=== PATIENT | female | born 1985 | race Caucasian/White ===

== ENCOUNTER 2017-04-15 20:34 | Emergency (ER) | payer SELFPAY ==
--- NOTE | 2017-04-15 20:43 | ED Physician Documentation ---
General Adult - HISTORIAN Historian: patient - HPI Stated Complaint: chest pain Chief Complaint: General Adult Onset: hours Timing: still present Severity: moderate Further Comments: yes (Pt is a 32 yo female with c/o chest pain. Pt has not had n/v, sob, diaphoresis. Pain radiates to back. No significatn PMHx. Pain is 6/10 in severity.) - ROS CONST: no problems EYES/ENT: none CVS/RESP: chest pain. denies: shortness of breath GI/: none MS/SKIN/LYMPH: none - PAST HX Past History: none Allergies/Adverse Reactions: Allergies Allergy/AdvReac Type Severity Reaction Status Date / Time morphine Allergy Intermediate Generalized Verified 04/15/17 21:14 Swelling - SOCIAL HX Smoking History: cigarettes Alcohol Use: occasionally - FAMILY HX Family History: No - VITAL SIGNS Vital Signs: Vital Signs Temp Pulse Resp BP Pulse Ox 131/79 10/27/13 22:08 - REVIEWED ASSESSMENTS Nursing Assessment Reviewed: Yes Vitals Reviewed: Yes Progress - Progress Progress: GI cocktail no change Toradol 30 mg IV improved pain 6 --> 2 continue NSAIDS - EKG/XRAY/CT XRAY: chest (neg) General Adult Physical Exam - PHYSICAL EXAM GENERAL APPEARANCE: anxious EENT: pharynx normal NECK: normal inspection, supple RESPIRATORY: no resp distress, breath sounds normal, other (reproducible chest tenderness to palpation) CVS: reg rate & rhythm, heart sounds normal ABDOMEN: soft, no organomegaly, normal bowel sounds BACK: normal inspection, no CVA tenderness SKIN: warm/dry, normal color EXTREMITIES: non-tender, normal range of motion, no evidence of injury NEURO: oriented X3, motor nml, sensation nml Discharge Clincal Impression: Non-cardiac chest pain, Costochondral chest pain Referrals: Sharmaine Hester MD [Primary Care Provider] - Condition: Stable Disposition: 01 HOME, SELF-CARE Decision to Admit: NO Decision Time: 22:09
[2017-04-15] MEDS: MAG HYDROX/AL HYDROX/SIMETH 30 ML, Lidocaine 2%Visc 15ml 20 MG, PHENobarb/HYOSCY/ATROPI... PO ONE ×3 (20:55)
[2017-04-15 20:59] LABS: BASOPHILS % 0.5 (0.0-1.5); EOSINOPHILS % 5.6 % (0.0-6.8); MEAN CORPUSCULAR HEMOGLOBIN 30.3 pg (28.0-34.0); MEAN CORPUSCULAR VOLUME 90.6 fl (80.0-100.0); MONOCYTES % 3.9 % (0.0-11.0); NEUTROPHILS # 3.9 # k/uL (1.4-7.7)
[2017-04-15 21:12] LABS: eGFR (African) > 60; eGFR (Non-African) > 60
[2017-04-15] MEDS: MAGNESIUM HYDROXIDE/AL HYDROX 30 ML UDC PO ONE (21:47)
[2017-04-15] MEDS: Lidocaine 2%Visc 15ml 20 MG/ML UDC ONE (21:47)
--- NOTE | 2017-04-15 21:48 | Diagnostic Imaging Report ---
JOSELITO ARORA [facility] [address] [address] [facility] [address] Report Submission Date: Apr 15, 2017 9:47:03 PM OFFSET LITHOGRAPHIC PRESS OPERATOR Patient Study Name: ATTILA ZABALA Date: Apr 15, 2017 9:24:39 PM OFFSET LITHOGRAPHIC PRESS OPERATOR Modality Type: DX Gender: F Description: CHEST : 85 Institution: [facility] Physician: JOSELITO ARORA Chest 2 views History: 1 day chest pain Findings: The lungs are clear. There is no pleural effusion. Heart size and pulmonary vascularity are normal. Osseous structures are unremarkable. Impression: Normal chest. Electronically signed on Apr 15, 2017 9:47:03 PM OFFSET LITHOGRAPHIC PRESS OPERATOR by: Carlos RENAE
[2017-04-15] MEDS: KETOROLAC TROMETHAMINE 30 MG/1ML VIAL IVP ONE (21:53)
[2017-04-15 22:33] VITALS: BP 114/55
== END 2017-04-15 22:25 | disposition home or self-care (01) ==
LOC: ED 20:34
DX: R07.89 Other chest pain (principal); F17.210 Nicotine dependence, cigarettes, uncomplicated
CPT/HCPCS: 71046; 80053; 82550; 83690; 84484; 84703; 85025; 93005; A9270; J1885; 96374; 99282; 99283; S1016

== ENCOUNTER 2018-04-06 16:25 | Emergency (ER) | payer SELFPAY ==
--- NOTE | 2018-04-06 16:37 | ED Physician Documentation ---
Female Urogenital Problems - HISTORIAN Historian: patient - HPI Stated Complaint: difficult with urination Chief Complaint: Female Urogenital Problems Additional Information: Patient presents to ED with a 12 hour history of difficulty with urination and dysuria. Patient denies fever. Onset: hours (12) Severity: mild Further Comments: no - Associated Symptoms Urinary Symptoms: frequent urination, discomfort w/ urination, urgency w/ urination - ROS CONST: denies: fever GI/: denies: nausea, vomiting CVS/RESP: denies: chest pain, shortness of breath EYES/ENT: none NEURO/PSYCH: denies: headache MS/SKIN/LYMPH: none - PAST HX Past History: none Other History: none Surgeries/Procedures: none Allergies/Adverse Reactions: Allergies Allergy/AdvReac Type Severity Reaction Status Date / Time morphine Allergy Intermediate Generalized Verified 04/06/18 16:44 Swelling Home Medications: Ambulatory Orders Medication Instructions Recorded Ciprofloxacin HCl [Cipro] 500 mg PO BID 3 Days #6 tablet 04/06/18 - SOCIAL HX Smoking History: non-smoker Alcohol Use: none Drug Use: none - FAMILY HX Family History: none - VITAL SIGNS Vital Signs: Vital Signs Temp Pulse Resp BP Pulse Ox 114/55 04/15/17 22:25 - REVIEWED ASSESSMENTS Nursing Assessment Reviewed: Yes Vitals Reviewed: Yes ED Results Lab/Radiology - Orders Orders: ED Orders Category Date Time Status UA W/MICRO IF INDICATED Routine Lab 04/06/18 16:33 Ordered Female Urogenital Problems - EXAM General Appearance: no acute distress, alert EENT: NIKKY Neck: nml inspection Respiratory: no resp. distress, breath sounds nml, respiratory distress CVS: reg rate & rhythm, heart sounds normal Abdomen: soft, non-tender, no distention, nml bowel sounds Back: No: CVA tenderness Skin: warm,dry Extremities: non-tender Neuro: oriented X3, motor nml Discharge Clincal Impression: Acute cystitis Qualifiers: Hematuria presence: without hematuria Qualified Code(s): N30.00 - Acute cystitis without hematuria Prescriptions: Ciprofloxacin HCl [Cipro] 500 mg PO BID 3 Days #6 tablet Referrals: Sharmaine Hester MD [Primary Care Provider] - 2 Days Additional Instructions: 1. Start Cipro tomorrow morning 2. Drink plenty of fluid to maintain proper hydration. Avoid Alcohol and Caffeine 3. Follow up with PCP within 1 week 4. Return to ER for new or worsening symptoms. Condition: Stable Disposition: 01 HOME, SELF-CARE Decision to Admit: NO Date of Decison to Admit: 04/06/18 Decision Time: 17:21
[2018-04-06] MEDS ORDERED: LIDOCAINE HCL 1% PF 50MG/5ML AMP (IM/SUTURE/PAIN CLINIC) IVP ONE (16:41)
[2018-04-06] MEDS ORDERED: cefTRIAXone SODIUM 1 GM INJ IM ONE (16:41)
[2018-04-06 16:44] VITALS: BP 119/86
[2018-04-06 17:30] LABS: APPEARANCE,URINE CLEAR (CLEAR); COLOR,URINE YELLOW (YELLOW)
[2018-04-06 17:31] LABS: OCCULT BLOOD,URINE 1+ (NEGATIVE); PH URINE 5.5 (5.0 - 8.0); UROBILINOGEN URINE 0.2 Eu (0.2-1.0)
== END 2018-04-06 17:10 | disposition home or self-care (01) ==
LOC: ED 16:25
DX: N30.00 Acute cystitis without hematuria (principal)
CPT/HCPCS: 81002; 87086; 96372; 99283; 99284; J0696

== ENCOUNTER 2018-11-04 17:49 | Emergency (ER) | payer SELFPAY ==
--- NOTE | 2018-11-04 18:00 | ED Physician Documentation ---
General Adult - HISTORIAN Historian: patient - HPI Stated Complaint: nausea and vomiting Chief Complaint: Nausea,Vomiting,Diarrhea Onset: days ago (1) Timing: still present Severity: moderate (6/10) Further Comments: yes (She states two weeks ago she started to have on and off chest pain. No cough. She did have congestion. No fever. She states this evening she had an episode where she got sweaty and nauseated and she did not take any oTC meds. THe pain is continuing mildly in the mid chest and the nausea is slighty less. No injury. NO shortness of air.) - ROS CONST: no problems CVS/RESP: chest pain, cough. denies: shortness of breath GI/: vomiting, nausea. denies: abdominal pain, problems urinating MS/SKIN/LYMPH: none - PAST HX Past History: none Immunizations: UTD Allergies/Adverse Reactions: Allergies Allergy/AdvReac Type Severity Reaction Status Date / Time morphine Allergy Intermediate Generalized Verified 11/04/18 19:13 Swelling Home Medications: Ambulatory Orders Medication Instructions Recorded NK 11/04/18 - SOCIAL HX Smoking History: non-smoker Alcohol Use: none Drug Use: none - FAMILY HX Family History: No - VITAL SIGNS Vital Signs: Vital Signs Temp Pulse Resp BP Pulse Ox 120/78 06/20/18 15:42 - REVIEWED ASSESSMENTS Nursing Assessment Reviewed: Yes Vitals Reviewed: Yes Progress - Progress Progress: 1915: states nausea is improved DG 1929: discussed current results - states pain is the same although no nausea. DG 2002: States pain has not changed DG 2028: Discussed findings. She states it is not "pain" but a pressure and she has never had reflux she does not believe it is reflux - discussed that she has had the chest pain for almost two weeks trop would most generally be elevated after that time. Offered her GI cocktail or stay for repeat trop and she states she is ready to go home. DG ED Results Lab/Radiology - Radiology Radiology Impressions: Chest, 1 view History: CHEST PRESSURE FOR ABOUT A WEEK Findings: The heart size is normal. The lungs are clear. There is no pleural effusion or pneumothorax identified. The osseous structures are normal. Impression: 1. No acute pulmonary disease. Electronically signed on Nov 04, 2018 7:05:11 PM CDT by: Ran Mata General Adult Physical Exam - PHYSICAL EXAM GENERAL APPEARANCE: no distress EENT: eye inspection normal, no signs of dehydration NECK: normal inspection RESPIRATORY: no resp distress, breath sounds normal, other (Chest is tender to touch mid to left with palpation ) CVS: reg rate & rhythm, heart sounds normal ABDOMEN: soft, no distension, tenderness (epigastric area) SKIN: warm/dry, normal color EXTREMITIES: non-tender, normal range of motion, no evidence of injury, no edema NEURO: oriented X3 Discharge Clincal Impression: Non-cardiac chest pain Referrals: Sharmaine Hester MD [Primary Care Provider] - 2 Days Comments: 1. Tramadol 50 mg take 1 by mouth every 8 hours as needed for pain 2. Omeprazole 20 mg take 1 by mouth daily 3. Follow up with PCP in 2-4 days 4. Return to ER for any increased results Condition: Stable Disposition: 01 HOME, SELF-CARE Decision to Admit: NO Date of Decison to Admit: 11/04/18 Decision Time: 20:32
[2018-11-04 18:24] LABS: BASOPHILS % 0.3 % (0.0-1.5); NEUTROPHILS # 3.8 # k/uL (1.4-7.7)
[2018-11-04 18:25] LABS: APPEARANCE,URINE CLEAR (CLEAR); COLOR,URINE YELLOW (YELLOW); OCCULT BLOOD,URINE NEGATIVE (NEGATIVE); PH URINE 6.5 (5.0 - 8.0); UROBILINOGEN URINE 0.2 Eu (0.2-1.0)
[2018-11-04] MEDS: ASPIRIN 81 MG CHEW TAB PO ONE (18:25)
[2018-11-04] MEDS: 0.9 % SODIUM CHLORIDE 1,000 ML IV ONE (18:25)
[2018-11-04] MEDS: ONDANSETRON HCL/PF 4 MG/ 2ML VIAL IVP ONE (18:27)
[2018-11-04 18:40] LABS: eGFR (Non-African) > 60
[2018-11-04] MEDS: PANTOPRAZOLE SODIUM 40 MG in SODIUM CHLORIDE 0.9 % (FLUSH) 10 ML IVP ONE (19:20)
[2018-11-04] MEDS: KETOROLAC TROMETHAMINE 30 MG/1ML VIAL IV ONE (19:41)
[2018-11-04] MEDS: traMADol HCL 50 MG TABLET PO ONE (20:51)
[2018-11-04 21:07] VITALS: BP 96/63
--- NOTE | 2018-11-06 00:16 | Diagnostic Imaging Report ---
AGUSTIN GARCIA [facility] [address] [address] [facility] [address] [place], [place]. [address] Report Submission Date: Nov 04, 2018 7:05:11 PM CDT Patient Study Name: ATTILA ZABALA Date: Nov 04, 2018 6:21:56 PM CDT Modality Type: DX Gender: F Description: CHEST 1VIEW : 85 Institution: [facility] Physician: AGUSTIN GARCIA Chest, 1 view History: CHEST PRESSURE FOR ABOUT A WEEK Findings: The heart size is normal. The lungs are clear. There is no pleural effusion or pneumothorax identified. The osseous structures are normal. Impression: 1. No acute pulmonary disease. Electronically signed on Nov 04, 2018 7:05:11 PM CDT by: Ran RENAE
== END 2018-11-04 20:35 | disposition home or self-care (01) ==
LOC: ED 17:49
DX: R07.89 Other chest pain (principal); R19.7 Diarrhea, unspecified; R11.2 Nausea with vomiting, unspecified
CPT/HCPCS: 71045; 80053; 81002; 82553; 84484; 84703; 85025; 85610; 96374; 96375; 99284; J1885; J2405; J7030; 93005; S1016